=== PATIENT | female | born 1955 | race Hispanic/Latino ===

== ENCOUNTER 2025-05-22 05:51 | Observation (INO) | payer OTHER, MEDICARE ==
[2025-05-20 11:04] VITALS: BP 140/67; PULSE 82; RESP 18; TEMP 97.2
[2025-05-20 11:11] LABS: IMMATURE GRANULOCYTE ABSOLUTE 0.04 K/uL (0-1); NUCLEATED RED BLOOD CELLS 0.0 % (0.0-0.19); PLATELET COUNT (AUTO) 231 K/uL (130-400); RED BLOOD CELL COUNT(AUTO) 4.31 MIL/uL (4.00-5.50); RED CELL DISTRIBUTION WIDTH 12.4 % (11.0-15.5); WHITE BLOOD COUNT (AUTO) 8.2 K/uL (4.8-10.8)
[2025-05-20 11:13] LABS: CREATININE 0.7 mg/dL (0.5-1.0); GLOMERULAR FILTR. RATE CALC 94.0 mL/min (>90); GLUCOSE,RANDOM 132.0 mg/dL (70-105); SODIUM SERUM 142.0 mmol/L (136-145); UREA NITROGEN, BLOOD 30.0 mg/dL (7-18)
--- NOTE | 2025-05-20 11:15 | NUR ---
RE: IS INITIAL IS INITIAL INSTRUCTIONS PROVIDED TO PATIENT BY RT GABRIELLE DURING PREOP.
[2025-05-20 11:48] LABS: INR 0.95 (0.85-1.15)
[~2025-05-22] VITALS: Ht 157.5 cm; Wt 96.6 kg
[2025-05-22] VITALS (28 sets, daily range): BP systolic 92–143; BP diastolic 39–84; PULSE 67–97; RESP 16–20; TEMP 97.3–97.9; O2SAT 98–99
[~2025-05-22 05:51] MED LIST: ALBU18HF7 IH; ASPI-1443 PO; ATOR40TA69 PO; CETI10TA57 PO; EMPA25TA PO; ESOM40CA66 PO; FLUT1AER IH; INSU100I24 SQ; METF-444 PO; METO-408 PO; MONT-39 PO; REPA2TAB8 PO; SEMA2PEN SQ; SERT-440 PO; VALS160T29 PO
[2025-05-22] MEDS: 0.9%NACL 1000ML 1,000 ML IV ONE (06:14)
[2025-05-22] MEDS: GABAPENTIN 300 MG CAPSULE ONE (06:41)
[2025-05-22] MEDS: FAMOTIDINE 20MG VIAL IV ONE (06:41)
[2025-05-22 07:00] LABS: CREATININE 0.9 mg/dL (0.5-1.0); GLOMERULAR FILTR. RATE CALC 69.0 mL/min (>90); GLUCOSE,RANDOM 86.0 mg/dL (70-105); SODIUM SERUM 138.0 mmol/L (136-145); UREA NITROGEN, BLOOD 23.0 mg/dL (7-18)
[2025-05-22] MEDS ORDERED: LIDOCAINE PF 100MG/5ML (2%) SYRINGE 5ML ONE (07:00)
[2025-05-22] MEDS: TRANEXAMIC ACID 1000MG/10ML ONE (07:40)
[2025-05-22] MEDS ORDERED: CYCLOBENZAPRINE HCL 10 MG TABLET PO PRN (08:00)
[2025-05-22] MEDS ORDERED: PoTASSium chloRIDE 20MEQ ER 20 MEQ ERTAB PO PRN (08:00)
[2025-05-22] MEDS ORDERED: CALCIUM CARB 500MG PO PRN (08:00)
[2025-05-22] MEDS ORDERED: PoTASSium chl 10% ELIXIR 20MEQ 20 MEQ/15 ML UDCUP PO PRN (08:00)
[2025-05-22] MEDS ORDERED: FERROUS FUMARATE 324 MG TABLET PO PRN (08:00)
[2025-05-22] MEDS ORDERED: HYDROcodone/APAP 5/325 1 TAB TABLET PO PRN ×2 (08:00)
[2025-05-22] MEDS: 0.9%NACL 1000ML 1,000 ML IV SCH (08:00)
[2025-05-22] MEDS: (Semaglutide (Ozempic) 1 MG) SQ SCH (09:00)
[2025-05-22] MEDS: FLUTICASONE IH SCH (09:00)
[2025-05-22] MEDS: EMPAGLIFLOZIN 25MG TABLET PO SCH (09:00)
[2025-05-22] MEDS: VILANTEROL IH SCH (09:00)
[2025-05-22] MEDS ORDERED: NEOSTIGMINE METHYLSULFATE 1MG/ML IV ONE (09:47)
[2025-05-22] MEDS ORDERED: GLYCOPYRROLATE 0.2 MG/ML 5 ML VIAL ONE (09:47)
[2025-05-22] MEDS: REPAGLINIDE 1 MG TAB PO SCH (11:30)
--- NOTE | 2025-05-22 11:51 | NUR ---
RECEIVED PT FROM PACU RECEIVED PT FROM MAINOR LOG YARD DERRICK OPERATOR. PATIENT IS IN SEMI-FOWLERS POSITION. NO DISTRESS NOTED AND HAS SCDS ON BILATERALLY. PATIENT REPORTS SHE WANTS ICE PACKS AND REST. GAVE HER THE REQUESTS AND WILL CONTINUE TO MONITOR.
--- NOTE | 2025-05-22 11:52 | OP ---
Operative Note: DATE OF PROCEDURE: 05/22/25 PREOPERATIVE DIAGNOSIS: Right knee osteoarthritis. POSTOPERATIVE DIAGNOSIS: Right knee osteoarthritis. PROCEDURE PERFORMED: Right knee total knee arthroplasty. SURGEON: Sara Vincent MD SHIP KEEPER: Deisy Irizarry and Vidhi Underwood. ANESTHESIA: General with adductor canal block. ANESTHESIA: YANN Matias. ESTIMATED BLOOD LOSS: 250cc. COMPLICATIONS: None. DRAINS: None. SPECIMENS REMOVED: resected bone. Not sent to pathology. IMPLANTS: [employer] II BCS size 5 Oxinium femur, size 3 tibial base plate, 29 x 7.5 mm patella, 10 mm polyethylene STATEMENT OF MEDICAL NECESSITY: The patient is a 69-year-old female who suffers from right knee osteoarthritis failing conservative management. After discussion of the risks, benefits, and alternatives with the patient, they voluntarily agreed to undergo the aforementioned procedure. DESCRIPTION OF PROCEDURE: Patient was properly identified in the preoperative holding area. Surgical site marking was verified and surgery consent reviewed. The patient was then taken to the operating room and placed in supine position on the OR table. After induction of general anesthesia, preoperative antibiotics were given, all bony prominences were well-padded, and a well padded tourniquet was applied but not inflated at this time. The right lower extremity was then prepped and draped in usual sterile fashion. Surgical time out was done verifying correct surgery, side, site, and location to be performed. We then began the procedure by exsanguinating the limb using an Esmarch and inflating the tourniquet to 250 mmHg. At this point, we made an anterior midline incision using a 10 blade, coming down sharply the level of the fascia. It appeared that we had a venous tourniquet so we attempted deflating the tourniquet and re-doing Esmarch and tourniquet. Skin flaps were elevated medially and laterally. We then obtained a clean 10 blade and performed a standard medial parapatellar arthrotomy. We continued to have extra bleeding controlled this with the electrocautery. We excised the infrapatellar fat pad. We performed our soft tissue releases off of the tibia. We transected the ACL and removed the anterior portion of the medial & lateral meniscus. We then brought the knee into hyperflexion with the patella everted. We used our entry reamer to enter the femoral canal. We then placed our intramedullary cutting guide for our distal femoral cutting block. We then performed our distal femoral osteotomy ensuring appropriate rotation and removed the bony wafer. We then removed these pins and block and then used jig 2 to size the distal femur with the after mentioned size found. We then placed our 5-in-1 cutting block in 3 degrees of external rotation and took our 5 cuts ensuring to protect the patellar tendon and the collateral ligaments. We then removed the cutting block and our bony fragments using a curved osteotome. We then placed our PCL retractor subluxating the tibia anteriorly. Using an extra medullary tibial cutting guide, we hung the block for our proximal tibial cut taking 2 mm off the more diseased portion. Prior to pinning this block in place, we ensured appropriate varus/valgus alignment and posterior slope similar to the [place] slope of the patient's knee. We then performed our proximal tibial osteotomy and removed the bony wafer using Bovie electrocautery to release any remaining soft tissue attachments. We then used our tibial sizing paddle and checked once more for varus & valgus alignment and found this to be appropriate. At this point, we pinned our tibial paddle in place. We then removed the PCL retractor and subluxated the tibia posteriorly while we placed our femoral trial component. We then finished preparing the notch with the reamer and box chisel. The notch portion of the trial femoral component was then placed. A posterior stabilized polyethylene, size 9 trial was placed. The knee was then taken through range of motion and found to have stable full range of motion. We then placed a bump under the ankle and everted the patella to perform our freehand cut of the undersurface the patella. We then sized our patella and reamed to the lug holes for this. We placed our trial patellar component and begin to take the knee through range of motion. The patella had significant lateral tracking so we performed a lateral release. We continued to have lateral tracking so we elected to use the 7.5 mm thickness patellar component. At this point we began removing our trial components and punched the tibial keel prior to removing our tibial trial component. Final components were opened and cement was mixed on the back table while we injected local cocktail in the posterior capsule. We then thoroughly irrigated out the bone and dried the bony surfaces. We cemented our tibial component in place ensuring to remove excess cement and placed our trial polyethylene. We then cemented our femoral component in place once again taking time to ensure excess cement was removed leg was brought into full extension to help squeeze the excess cement from around the femoral component. We then brought the knee back in a flexion to remove this portion of the cement at this point we placed the ankle in a bump thoroughly irrigated off the patellar component and cemented our patellar component in standard fashion again removing excess cement. While we waited for the cement to cure, we thoroughly irrigated out the wound with normal saline. Once our cement had cured, we took the knee through a range of motion and found full and stable range of motion. We then elected to use the size 10 polyethylene and removed our trial polyethylene. We impacted our final polyethylene component in place in standard fashion and took the knee through a range of motion check once more. This was satisfactory so we began to repair the arthrotomy using #5 Ethibond and #1 Vicryl in interrupted [id number] fashion. Subcutaneous tissue was repaired using 2-0 Vicryl. Running subcuticular 3-0 Mon ocryl stitch with Dermabond placed over this for the skin. We then applied a foam barrier dressing and a pressure dressing consisting of 4 x 4's fluffs and an Loki wrap. The tourniquet was then deflated. Patient was awakened from anesthesia, and they were taken to the recovery room in stable condition. SARA VINCENT MD May 22, 2025 11:52
--- NOTE | 2025-05-22 11:54 | DS ---
Discharge Summary Hospital Course Summary: The patient was admitted to the hospital postoperatively on 05/22/2025 after undergoing right total knee arthroplasty. They did well with routine postoperative pain control. They worked well with physical therapy. They developed some acute blood loss anemia but remained asymptomatic. The hospital course was otherwise uncomplicated. They were subsequently able to be discharged on postoperative day 2 once discharge arrangements were made with [facility]. Livestock Agent(s): None Procedure(s): Right total knee arthroplasty, 05/22/2025 Assessment/Plan: ASSESSMENT: Status post right total knee arthroplasty Acute blood loss anemia PLAN: See discharge instructions Discharge Instructions: Begin working with physical therapy at the facility. Dressing may be removed 05/26/2025 and left open to air. Showers ok allowing soap and water to run over the wound. Pat dry. Do not submerge wound in tub/pool. Do not apply ointments. Do not apply Betadine. Do not apply peroxide. Ice packs to decrease pain/swelling. Prescriptions have been sent to the pharmacy: *[place] 5/325mg 1-2 tab every 6 hours as needed for severe pain. (please call for refills) Cyclobenzaprine 5mg 1 tab every 8 hours as needed for muscle spasm pain. Gabapentin 100mg 1 tab every 8 hours (may discontinue if drowsy). Colace 100mg 1 tab orally twice a day as needed for constipation. Aspirin 325mg twice a day for 30 days to prevent blood clots. Follow-up appointment scheduled for 06/13/2025 at 9:30 AM with [facility]. Home Medications: Reported Medications Aspirin (Aspirin EC) 81 Mg Tablet.dr, 81 MG PO DAILY, TAB 05/20/25 Repaglinide (Repaglinide) 2 Mg Tablet, 2 MG PO TIDAC, TAB 05/20/25 Semaglutide (Ozempic) 2 Mg/0.75 Ml (8 Mg/3 Ml) Pen.injctr, 4 MG SQ QWEEK Tuesday05/20/25 Insulin Degludec (Tresiba Flextouch U-100) 100 Unit/Ml (3 Ml) Insuln.pen, 20 UNIT SQ DAILY, SYRINGE 05/20/25 Atorvastatin Calcium (LIPITOR) 40 Mg Tablet, 40 MG PO HS, TAB 05/20/25 Sertraline HCl (Sertraline HCl) 100 Mg Tablet, 100 MG PO DAILY, TAB 05/20/25 Metformin HCl (Metformin HCl) 500 Mg Tablet, 500 MG PO BID, TAB 05/20/25 Esomeprazole Magnesium (Esomeprazole Magnesium) 40 Mg Capsule.dr, 40 MG PO DAILY, CAP 05/20/25 Empagliflozin (Jardiance) 25 Mg Tablet, 25 MG PO DAILY, TAB 05/20/25 Montelukast Sodium (Montelukast Sodium) 10 Mg Tablet, 10 MG PO DAILY, TAB 05/20/25 Cetirizine HCl (Cetirizine HCl) 10 Mg Tablet, 10 MG PO HS, TAB 05/20/25 Metoprolol Succinate (Metoprolol Succinate) 25 Mg Tab.er.24h, 25 MG PO DAILY, TAB 05/20/25 Valsartan (Valsartan) 160 Mg Tablet, 160 MG PO DAILY, TAB 05/20/25 Albuterol Sulfate (Ventolin Hfa) 90 Mcg Hfa.aer.ad, 1-2 PUFF IH Q4PRN, INHALER 05/20/25 Fluticasone/Vilanterol (Breo Ellipta 100-25 Mcg INH) 100 Mcg-25 Mcg/Dose Aer.pow.ba, 1 EACH IH DAILY 05/20/25 SYDNEE AGUDELO MD May 22, 2025 11:54
--- NOTE | 2025-05-22 12:15 | NUR ---
Ortho Coordinator: Teaching regarding DVT and pneumonia prevention, pain expectations and pain management. Patient in bed, drowsy. Daughter at bedside. B SCD sleeves in place and functioning. Ice pack to surgical site. Incentive spirometer at bedside. Patient return demonstrated proper use of incentive spirometer and verbalized proper frequency of use. Patient return demonstrated proper foot flexion and extension exercises. Patient intends to discharge to rehab. Pain management strategy reviewed. Pain numeric scale reviewed. Set expectation for patient to shower tomorrow. Informed patient physical therapy would be by shortly to work with patient. Patient and daughter verbalized understanding to all instructions. Patient reports bowel movement post surgery. No additional questions/concerns at this time.
--- NOTE | 2025-05-22 12:44 | HMCIMG ---
EXAM: XR Right Knee, AP and Lateral Views. CLINICAL HISTORY: 69-year-old female with history of right total knee arthroplasty (TKA) surgery. COMPARISON: None provided. FINDINGS: BONES: Right knee arthroplasty. No evidence for loosening of the prosthetic components. JOINTS: No dislocation. Postoperative changes seen. Follow up as clinically indicated. SOFT TISSUES: The soft tissues are unremarkable. IMPRESSION: 1. Right knee arthroplasty with no evidence of loosening. 2. Postoperative changes seen, follow up as clinically indicated. /[place]
--- NOTE | 2025-05-22 13:30 | NUR ---
PT NOTED WITH LOW BP (94/44, 74/44). PATIENT PLACED IN REVERSE TRENDELENBERG. PT TO FOLLOW. Addendum: 05/22/25 at 1351 by WOLF ARNDT PT Amended: Links added.
[2025-05-22] MEDS: HYDROcodone/APAP 5/325 1 TAB TABLET PO PRN (13:58)
--- NOTE | 2025-05-22 15:38 | NUR ---
CHANGE IN CONDITION PATIENT INFORMED ME THAT SHE WAS SEEING VISUAL HALLUCINATIONS OF PEOPLE AND A DOG. I INFORMED DR. AGUDELO AND DR. AGUDELO STATED TO DC GABAPENTIN. WILL CONTINUE TO MONITOR PT STATUS. PATIENT IS NOT IN DISTRESS AT THE MOMENT.
[2025-05-23] VITALS (8 sets, daily range): BP systolic 84–143; BP diastolic 40–67; PULSE 73–95; RESP 16–20; TEMP 97.8–99.3; O2SAT 96
[2025-05-23 03:43] LABS: NUCLEATED RED BLOOD CELLS 0.0 % (0.0-0.19); PLATELET COUNT (AUTO) 214.0 K/uL (130-400); RED BLOOD CELL COUNT(AUTO) 3.49 MIL/uL (4.00-5.50); RED CELL DISTRIBUTION WIDTH 12.8 % (11.0-15.5); WHITE BLOOD COUNT (AUTO) 14.1 K/uL (4.8-10.8)
[2025-05-23 03:53] LABS: CREATININE 0.9 mg/dL (0.5-1.0); GLOMERULAR FILTR. RATE CALC 69.0 mL/min (>90); GLUCOSE,RANDOM 59.0 mg/dL (70-105); SODIUM SERUM 141.0 mmol/L (136-145); UREA NITROGEN, BLOOD 28.0 mg/dL (7-18)
--- NOTE | 2025-05-23 07:30 | NUR ---
POST OP DAY #1 Patient demonstrates safe ability to sit to stand / ambulate with use of walker. Continues with appropriate use of incentive spirometer. SCDs in place while in bed. Dressing is clean, dry and intact. Patient reports that she will be going to [facility] for next level of care.
[2025-05-23] MEDS: ASPIRIN 325MG EC TAB PO SCH (08:43)
--- NOTE | 2025-05-23 10:45 | NUR ---
Ortho Coordinator: Reinforced teaching. Patient in bed, dressed in street clothes. Dressing clean, dry and intact. Patient denies shower, reinforced expectation to shower today, rationale provided. When asked about frequency of use of incentive spirometer, stated "every once and a while". Reinforced frequency and rationale. Pain controlled. Patient reports two bowel movements yesterday. 1050: Reviewed with care team to reinforce need for shower today.
--- NOTE | 2025-05-23 12:21 | PN ---
Ortho postop day one. The patient is awake alert and oriented. She is currently about to get into the shower ambulating with a walker. Reports adequate pain control. Vital signs have remained stable she has been afebrile. Laboratory results reviewed H&H low as expected after TKA patient is asymptomatic and we will address per protocol as necessary. Voiding on her own. Passing gas. The anterior dressing is intact. She has been applying ice intermittently throughout the day. Yesterday she ambulated about 30 ft with therapy and this morning 50 ft. Anticipated discharge goal is home health/PT. Assessment: Status post right TKA. Asymptomatic acute postoperative blood loss anemia. Plan: Continue with Dr. Vincent's TKA protocol and discharge planning. Asymptomatic acute postoperative blood loss anemia addressed per protocol as necessary. Vitals/Labs Vital Signs Date Time Temp Pulse Resp B/P (MAP) Pulse Ox O2 Delivery O2 Flow Rate FiO2 05/23/25 11:07 98.1 78 16 114/60 96 Room Air 05/23/25 08:00 0 21 Laboratory Tests 05/23/25 03:35 Medications Current Medications Cefazolin Sodium 2 gm STK-MED ONCE .ROUTE Last administered on 05/22/25at 07:45; Start 05/22/25 at 06:14; Stop 05/22/25 at 06:14; Status DC Sodium Chloride 1,000 ml @ As Directed STK-MED ONCE IV; Start 05/22/25 at 06:14; Stop 05/22/25 at 06:14; Status DC Gabapentin 300 mg STK-MED ONCE .ROUTE; Start 05/22/25 at 06:41; Stop 05/22/25 at 06:41; Status DC Acetaminophen 100 ml @ As Directed STK-MED ONCE .ROUTE; Start 05/22/25 at 06:41; Stop 05/22/25 at 06:41; Status DC Famotidine 20 mg STK-MED ONCE IV; Start 05/22/25 at 06:41; Stop 05/22/25 at 06:41; Status DC Ropivacaine 150 mg STK-MED ONCE .ROUTE; Start 05/22/25 at 06:51; Stop 05/22/25 at 06:51; Status DC Ketamine HCl 50 mg STK-MED ONCE .ROUTE; Start 05/22/25 at 06:51; Stop 05/22/25 at 06:51; Status DC Lidocaine HCl 100 mg STK-MED ONCE .ROUTE; Start 05/22/25 at 07:00; Stop 05/22/25 at 07:00; Status DC Propofol 200 mg STK-MED ONCE IV; Start 05/22/25 at 07:00; Stop 05/22/25 at 07:00; Status DC Rocuronium [place] 50 mg STK-MED ONCE .ROUTE; Start 05/22/25 at 07:00; Stop 05/22/25 at 07:00; Status DC Fentanyl Citrate 100 mcg STK-MED ONCE .ROUTE; Start 05/22/25 at 07:01; Stop 05/22/25 at 07:01; Status DC Ketorolac Tromethamine 30 mg STK-MED ONCE .ROUTE Last administered on 05/22/25at 08:30; Start 05/22/25 at 07:02; Stop 05/22/25 at 07:03; Status DC Ropivacaine 150 mg STK-MED ONCE .ROUTE Last administered on 05/22/25at 08:31; Start 05/22/25 at 07:03; Stop 05/22/25 at 07:03; Status DC Tranexamic Acid 1,000 mg STK-MED ONCE .ROUTE Last administered on 05/22/25at 07:40; Start 05/22/25 at 07:14; Stop 05/22/25 at 07:14; Status DC Albuterol 1 UDVIAL ONCE ONCE IH Last administered on 05/22/25at 07:23; Start 05/22/25 at 07:30; Stop 05/22/25 at 07:31; Status DC Ondansetron HCl 4 mg STK-MED ONCE .ROUTE; Start 05/22/25 at 07:35; Stop 05/22/25 at 07:35; Status DC Dexamethasone Sodium Phosphate 10 mg STK-MED ONCE .ROUTE; Start 05/22/25 at 07:35; Stop 05/22/25 at 07:35; Status DC Sodium Chloride 1,000 ml @ 100 mls/hr Q10H IV Last administered on 05/23/25at 03:22; Start 05/22/25 at 08:00; Stop 05/23/25 at 07:59; Status DC Polyethylene Glycol 17 gm DAILY PO Last administered on 05/23/25at 08:41; Start 05/22/25 at 09:00; Stop 06/21/25 at 08:59 Bisacodyl 10 mg DAILY PRN RC; Start 05/25/25 at 08:00; Stop 06/24/25 at 07:59 Ketorolac Tromethamine 15 mg Q6H PRN IV Last administered on 05/23/25at 08:45; Start 05/23/25 at 08:00; Stop 05/28/25 at 07:59 Ferrous Fumarate 324 mg DAILY PRN PO; Start 05/22/25 at 08:00; Stop 06/21/25 at 07:59 Ondansetron HCl 4 mg Q6H PRN IVP; Start 05/22/25 at 08:00; Stop 06/21/25 at 07:59 Calcium Carbonate 500 mg Q12H PRN PO; Start 05/22/25 at 08:00; Stop 06/21/25 at 07:59 Insulin Human Regular INSULIN SLIDING SCAL... ACHS SQ Last administered on 05/22/25at 20:13; Start 05/22/25 at 11:30; Stop 06/21/25 at 11:29 Cefazolin Sodium 2 gm Q8H IVPB Last administered on 05/22/25at 20:12; Start 05/22/25 at 13:00; Stop 05/22/25 at 21:01; Status DC Cyclobenzaprine HCl 5 mg Q8H PRN PO; Start 05/22/25 at 08:00; Stop 06/21/25 at 07:59 Gabapentin 100 mg TID PO Last administered on 05/22/25at 13:53; Start 05/22/25 at 09:00; Stop 06/21/25 at 08:59 Aspirin 325 mg DAILY PO Last administered on 05/23/25at 08:43; Start 05/23/25 at 09:00; Stop 06/22/25 at 08:59 Ketorolac Tromethamine 15 mg Q8H IV Last administered on 05/22/25at 23:13; Start 05/22/25 at 08:00; Stop 05/23/25 at 00:01; Status DC Docusate Sodium 100 mg BID PO Last administered on 05/23/25at 08:44; Start 05/22/25 at 09:00; Stop 06/21/25 at 08:59 Potassium Chloride 100 ml @ 100 mls/hr AD PRN IV; Start 05/22/25 at 08:00; Stop 06/21/25 at 07:59 Potassium Chloride 20 meq AD PRN PO; Start 05/22/25 at 08:00; Stop 06/21/25 at 07:59 Potassium Chloride 20 meq AD PRN PO; Start 05/22/25 at 08:00; Stop 06/21/25 at 07:59 Tramadol HCl 50 mg Q6H PRN PO; Start 05/22/25 at 08:00; Stop 05/27/25 at 07:59 Acetaminophen/ Hydrocodone Bitart Q4H PRN PO; Start 05/22/25 at 08:00; Stop 05/22/25 at 07:59; Status DC Atorvastatin Calcium 40 mg HS PO Last administered on 05/22/25at 20:13; Start 05/22/25 at 21:00; Stop 06/21/25 at 20:59 Empaglifozin 25 mg DAILY PO Last administered on 05/23/25at 08:44; Start 05/22/25 at 09:00; Stop 06/21/25 at 08:59 Metformin HCl 500 mg BID PO Last administered on 05/23/25at 08:44; Start 05/22/25 at 09:00; Stop 06/21/25 at 08:59 Metoprolol Succinate 25 mg DAILY PO Last administered on 05/23/25at 08:44; Start 05/22/25 at 09:00; Stop 06/21/25 at 08:59 Montelukast Sodium 10 mg DAILY PO Last administered on 05/23/25at 08:43; Start 05/22/25 at 09:00; Stop 06/21/25 at 08:59 Cetirizine HCl 10 mg HS PO Last administered on 05/22/25at 20:12; Start 05/22/25 at 21:00; Stop 06/21/25 at 20:59 Pantoprazole Sodium 40 mg DAILY PO Last administered on 05/23/25at 08:44; Start 05/22/25 at 09:00; Stop 06/21/25 at 08:59 Home Med (Fluticasone/ Vilanterol (B... DAILY IH; Start 05/22/25 at 09:00; Stop 06/21/25 at 08:59 Insulin Glargine 20 units DAILY SQ Last administered on 05/23/25at 09:03; Start 05/22/25 at 09:00; Stop 06/21/25 at 08:59 Repaglinide 2 mg TIDAC PO Last administered on 05/23/25at 06:33; Start 05/22/25 at 11:30; Stop 06/21/25 at 11:29 Home Med (Semaglutide (Ozempic) 1 MG) QWEEK SQ; Start 05/22/25 at 09:00; Stop 06/21/25 at 08:59 Sertraline HCl 100 mg DAILY PO Last administered on 05/23/25at 08:43; Start 05/22/25 at 09:00; Stop 06/21/25 at 08:59 Losartan Potassium 100 mg DAILY PO Last administered on 05/23/25at 08:44; Start 05/22/25 at 09:00; Stop 06/21/25 at 08:59 Phenylephrine HCl 10 mg STK-MED ONCE IV; Start 05/22/25 at 07:42; Stop 05/22/25 at 07:48; Status DC Acetaminophen/ Hydrocodone Bitart 1 tab Q4H PRN PO Last administered on 05/23/25at 06:34; Start 05/22/25 at 08:00; Stop 05/27/25 at 07:59 Acetaminophen/ Hydrocodone Bitart 2 tab Q4H PRN PO; Start 05/22/25 at 08:00; Stop 05/27/25 at 07:59 Dexmedetomidine HCl 200 mcg STK-MED ONCE IV; Start 05/22/25 at 08:15; Stop 05/22/25 at 08:16; Status DC Glycopyrrolate 1 mg STK-MED ONCE .ROUTE; Start 05/22/25 at 09:47; Stop 05/22/25 at 09:48; Status DC Neostigmine Methylsulfate 10 mg STK-MED ONCE IV; Start 05/22/25 at 09:47; Stop 05/22/25 at 09:48; Status DC Ketorolac Tromethamine 15 mg STK-MED ONCE .ROUTE; Start 05/22/25 at 10:21; Stop 05/22/25 at 10:21; Status DC Fentanyl Citrate 100 mcg STK-MED ONCE .ROUTE Last administered on 05/22/25at 10:33; Start 05/22/25 at 10:31; Stop 05/22/25 at 10:31; Status DC CLAUS MILLER NP May 23, 2025 12:21
--- NOTE | 2025-05-23 13:18 | NUR ---
[facility] MET WITH PT THIS MORNING, INITIAL ASSESSMENT DONE. PATIENT IS SEMI-INDEPENDENT PRIOR TO SURGERY LIVES AT HOME ALONE, DAUGHTER LIVES IN SAME TOWN BUT WORK EVERY DAY. PATIENT HAS A WALKER, WHEELCHAIR, SHOWER CHAIR, BEDSIDE COMMODE, CPAP, GLUC, TAKES INSULIN FOR DM, BPM, PROVIDER 4HRS DAILY. FEELS SAFE AT HOME, DAUGHTER ABLE TO ASSIST WITH NEEDS AND TRANSPORTATION. DISCUSSED MD RECOMMENDATIONS FOR HH PT ALREADY HAS OWN WKR, PT VERBALIZED SHE WOULD LIKE TO GO TO A REHAB AT [facility] IN [place] HER DAUGHTER WORKS DURING THE DAY, PT MADE AWARE DOES NOT QUALIFY FOR [facility] LEVEL OF CARE, GIVEN IN [facility] FACILITIES, PT AGREEABLE FOR [place] [facility] / ANY IN [facility] IN [place], IF INSURANCE DENY, PT AGREEABLE FOR [facility] LAST RESORT. CONSENT SIGNED KORINA. [facility] ONCE APPROVED, PLAN B . CM TO CONTINUE TO FOLLOW UP. Addendum: 05/23/25 at 1324 by LEOLA CANNON LVN CM Amended: Links added.
[2025-05-24 03:44] VITALS: BP 154/77; PULSE 94; RESP 16; TEMP 98.3
[2025-05-24 07:40] VITALS: BP 150/69; PULSE 81; RESP 18; TEMP 98.6
[2025-05-24 11:36] VITALS: BP 147/73; PULSE 99; RESP 18; TEMP 99.1
[2025-05-24] MEDS ORDERED: CYCL-309 PO (14:57)
[2025-05-24] MEDS ORDERED: DOCU-116 PO (14:57)
[2025-05-24] MEDS ORDERED: HYDR-4060 PO (14:57)
[2025-05-24] MEDS ORDERED: GABA100C PO (14:57)
[2025-05-24] MEDS ORDERED: ASPI-891 PO (14:57)
--- NOTE | 2025-05-24 16:31 | NUR ---
CALLED [facility], REPORT GIVEN TO DIANA MCMAHON. ALL QUESTIONS AND CONCERNS ANSWERED. FACILITY VAN TO PICK PATIENT UP IN NEXT 45 MINUTES.
--- NOTE | 2025-05-24 17:12 | NUR ---
PATIENT DISCHARGED. IV REMOVED INTACT. RIGHT KNEE INCISION DRESSING DRY AND INTACT. ALL QUESTIONS AND CONCERNS ANSWERED. INFORMED ABOUT DRESSING CARE AND FOLLOW UP APPOINTMENT WITH ORTHO. PATIENT TAKEN VIA WHEELCHAIR AND TAKEN BY [facility].
== END 2025-05-24 17:15 ==
LOC: DAH 05:51 → DAHIP 05:52 → DAH 05:52 → 4BH 11:15
PROVIDERS: ADMIT Student in an Organized Health Care Education/Training Program; ATTEND Student in an Organized Health Care Education/Training Program
DX: M17.11 Unilateral primary osteoarthritis, right knee (principal); G89.18 Other acute postprocedural pain; D62 Acute posthemorrhagic anemia; I10 Essential (primary) hypertension; E11.9 Type 2 diabetes mellitus without complications; E78.00 Pure hypercholesterolemia, unspecified; I25.10 Atherosclerotic heart disease of native coronary artery without angina pectoris; Z79.899 Other long term (current) drug therapy
CPT/HCPCS: 82040; 80048 ×3; 85025; 85610; 85730; 84134; 86140; 36415 ×3; 87641; 27447; 96376 ×3; 96365; 96366 ×2; 96375; 64447; 82948 ×10; 73560; 97161; 97116 ×5; 97530 ×6; 94640; 85027; J1815 ×3; G0378 ×58; A4223 ×2; A4663; A4649 ×2; J3490 ×6; J3010 ×2; J1100; J7030; J2003; J2704; J2405; J1885 ×6; J2710; J2795 ×2; J2371; J0690 ×3; C1713 ×2; C1776 ×2; A4930 ×2; A6255; A5120; A4215; A4213; A4222; A4221; A4216